=== PATIENT | female | born 1985 ===

== ENCOUNTER 2018-02-24 10:02 | Emergency (ER) | payer OTHER ==
[2018-02-24 10:02] VITALS: BMI 32.4
[2018-02-24 10:09] VITALS: RESP 18
[2018-02-24 10:47] LABS: HCG,QUALITATIVE URINE POSITIVE (NEGATIVE)
[2018-02-24 10:49] LABS: SQUAMOUS EPITHIAL 1 /hpf (0-5); URINE BILIRUBIN NEGATIVE (NEGATIVE); URINE BLOOD 2+ (NEGATIVE); URINE CLARITY Clear (Clear); URINE COLOR Yellow (YELLOW); URINE GLUCOSE (UA) 3+ mg/dL (Normal); URINE LEUKOCYTE ESTERASE NEG Leu/uL (Negative); URINE PROTEIN NEGATIVE (NEGATIVE); URINE UROBILINOGEN NORMAL mg/dL (0.2-1.0)
[2018-02-24 10:58] LABS: BASO % 0.6 % (0.0-2.0); EOS # 0.2 K/uL (0.0-0.7); EOS % 1.8 % (0.0-4.0); HEMOGLOBIN 13.7 g/dL (11.0-16.0); LYMPH # 2.2 K/uL (1.0-4.3); LYMPH % 26.5 % (20.0-40.0); MEAN CELL VOLUME 88.1 fL (81.0-99.0); MEAN CORPUSCULAR HEMOGLOBIN 29.5 pg (27.0-31.0); MEAN CORPUSCULAR HGB CONC 33.5 g/dL (33.0-37.0); MEAN PLATELET VOLUME 9.2 fL (7.2-11.7); MONO # 0.5 K/uL (0.0-0.8); MONO % 5.6 % (0.0-10.0); NEUT # 5.5 K/uL (1.8-7.0); NEUT % 65.5 % (50.0-75.0); RBC 4.66 Mil/uL (3.80-5.20); RED CELL DISTRIBUTION WIDTH 13.1 % (11.5-14.5); WHITE BLOOD COUNT 8.4 K/uL (4.8-10.8)
[2018-02-24 11:18] LABS: ALB/GLOB RATIO 1.5 (1.0-2.1); ALBUMIN 4.4 g/dL (3.5-5.0); ALT/SGPT 21 U/L (9-52); AST/SGOT 27 U/L (14-36); BLOOD UREA NITROGEN 6 mg/dL (7-17); CALCIUM 9.5 mg/dl (8.6-10.4); GFR NON-AFRICAN AMERICAN > 60
--- NOTE | 2018-02-24 13:18 | C.PDOC ---
History Of Present Illness 32 year old female, 12 weeks , , presents to ED for evaluation of vaginal spotting since last night. Notes she had dysuria few days ago which resolved after drinking plenty of water. Otherwise, denies abdominal pain, vomi ting, diarrhea, back pain, or fever. Time Seen by Provider: 02/24/18 10:14 Chief Complaint (Nursing): Female Genitourinary History Per: Patient History/Exam Limitations: no limitations Onset/Duration Of Symptoms: Days Current Symptoms Are (Timing): Still Present Quality Of Discomfort: "Pain" Associated Symptoms: denies: Fever, Chills, Vomiting, Diarrhea, Back Pain, Chest Pain, Constipation, Urinary Symptoms Alleviating Factors: None Recent travel outside of the [place]: No Additional History Per: Patient : 2 Para: 0 Past Medical History Reviewed: Historical Data, Nursing Documentation, Vital Signs Vital Signs: Last Vital Signs Temp 98.7 F 02/24/18 10:05 Pulse 80 02/24/18 10:05 Resp 18 02/24/18 10:05 BP 155/79 H 02/24/18 10:05 Pulse Ox 100 02/24/18 10:05 - Medical History PMH: No Chronic Diseases Surgical History: Appendectomy Family History: States: Unknown Family Hx - Social History Hx Alcohol Use: No Hx Substance Use: No Review Of Systems Constitutional: Negative for: Fever, Chills Gastrointestinal: Negative for: Nausea, Vomiting, Abdominal Pain, Diarrhea, Constipation Genitourinary: Positive for: Vaginal Bleeding (spotting). Negative for: Dysuria, Frequency, Hematuria, Vaginal Discharge, Pelvic Pain Musculoskeletal: Negative for: Back Pain Physical Exam - Physical Exam Appears: Non-toxic, No Acute Distress Skin: Normal Color, Warm, Dry Head: Atraumatic, Normacephalic Eye(s): bilateral: Normal Inspection Oral Mucosa: Moist Neck: Normal ROM, Supple Cardiovascular: Rhythm Regular, No Murmur Respiratory: Normal Breath Sounds, No Rales, No Rhonchi, No Wheezing Gastrointestinal/Abdominal: Soft, No Tenderness Back: No CVA Tenderness Extremity: Normal ROM Neurological/Psych: Oriented x3, Normal Speech ED Course And Treatment - Laboratory Results Result Diagrams: 02/24/18 10:48 02/24/18 10:48 Lab Interpretation: Abnormal O2 Sat by Pulse Oximetry: 100 (RA) Pulse Ox Interpretation: Normal - CT Scan/US Preg Ultrasound Other Rad Studies (CT/US): Read By Radiologist, Radiology Report Reviewed CT/US Interpretation: Accession No. : [id number]. Patient Name / ID : SERAFIN GONZALEZ / [id number]. Exam Date : 02/24/2018 11:44:43 ( Approved ). Study Comment : Sex / Age : F / 32Y. Creator : Becca Partida MD. Dictator : Becca Partida MD. Scientific Manager : Electroplater Automatic : Becca Partida MD. Approver2 : Report Date : 02/24/2018 13:14:18. My Comment : . Date of service: 02/24/2018. PROCEDURE: OB Pelvic Ultrasound. HISTORY: 12wk preg with pain bleeding. COMPARISON: None available. FINDINGS: UTERUS: Singleintrauterine gestation. Yolk sac is visualized. CRL measures 1.61 cm equivalent to 8 weeks and 0 day of gestational age. Gestational sac diameter measures 2.36 cm equivalent to 7 weeks and 0 day of gestational age. age (Ultrasound estimated): 7 weeks and 4 days. cardiac activity is not documented. Mikayla-gestational hemorrhage: None. Uterus measures 14.3 x 5.2 x 6.9 cm. No mass. CERVIX: Long and closed. There fluid in the endocervical canal. RIGHT OVARY: Measures 2.8 x 2.7 x 2.9 cm. No mass. Normal flow. LEFT OVARY: Measures 2.7 x 2.8 x 3.3 cm. No mass. Normal flow. FREE FLUID: None. OTHER FINDINGS: None. IMPRESSION: Single intrauterine gestation with mean gestational age of 7 weeks and 4 days. cardiac activity is not documented on the current examination concerning for demise. Important findings were discussed with CHRISTIAN Grace on 02/24/2018 at 1:55 p.m. The final report has been tagged to the PA review folder. - Physician Consult Information Time Consulting Physician Contacted: 13:57 Physician Contacted: Becca Palacio Outcome Of Conversation: Spoke to Dr. Mckay regarding the patient, who stated concern for demise due to no cardiac activity. Medical Decision Making Medical Decision Making: Impression: 32 year old female, 12 weeks , presents with vaginal spotting. Plan: * Blood work * Urinalysis * Preg 1st trimester ultrasound Labs showed hyperglycemia. BHCG 3586.9. US showed IUP with no cardiac activity and concern for demise. [address] Saran QUIJANO windows application administrator to discuss case. She states there is no emergent indication for D&C at this time and patient can be discharged and to follow up with OB clinic. I explained results to patient and provided copy of lab and US reports. I discussed the results and there is elevated glucose and related gestational diabetes which will need further evaluation. The plan is for discharge and course to follow. She understands and will follow up outpatient. Recommend rest and analgesics as needed Disposition - Disposition [facility] Disposition: HOME/ ROUTINE Disposition Time: 14:21 Condition: STABLE Additional Instructions: You were evaluated today for vaginal bleeding during . Your labs today showed BHCG 3586.9 and ultrasound showed Single intrauterine gestation with mean gestational age of 7 weeks and 4 days. cardiac activity is not seen and there is concern for demise. It is important that you follow up with lithographing machine operator in 2-3 days for further evaluation. Instructions: Threatened Miscarriage (DC) Forms: [employer] [facility] (French) - POA Present On Arrival: Poor Glycemic Control - Clinical Impression Clinical Impression: Threatened miscarriage, Abnormal ultrasound, Hyperglycemia during - PA / RETOUCHER PHOTOENGRAVING / Resident Statement MD/DO has reviewed & agrees with the documentation as recorded. - Scribe Statement The provider has reviewed the documentation as recorded by the Minnieibangelica Ye All medical record entries made by the Minnieibangelica were at my direction and perso slim dictated by me. I have reviewed the chart and agree that the record accurately reflects my personal performance of the history, physical exam, medical decision making, and the department course for this patient. I have also personally directed, reviewed, and agree with the discharge instructions and disposition.
--- NOTE | 2018-02-24 13:57 | US ---
Date of service: 02/24/2018 PROCEDURE: OB Pelvic Ultrasound HISTORY: 12wk preg with pain bleeding COMPARISON: None available. FINDINGS: UTERUS: Singleintrauterine gestation. Yolk sac is visualized. CRL measures 1.61 cm equivalent to 8 weeks and 0 day of gestational age. Gestational sac diameter measures 2.36 cm equivalent to 7 weeks and 0 day of gestational age. age (Ultrasound estimated): 7 weeks and 4 days cardiac activity is not documented. Mikayla-gestational hemorrhage: None. Uterus measures 14.3 x 5.2 x 6.9 cm. No mass CERVIX: Long and closed. There fluid in the endocervical canal. RIGHT OVARY: Measures 2.8 x 2.7 x 2.9 cm. No mass. Normal flow. LEFT OVARY: Measures 2.7 x 2.8 x 3.3 cm. No mass. Normal flow. FREE FLUID: None. OTHER FINDINGS: None. IMPRESSION: Single intrauterine gestation with mean gestational age of 7 weeks and 4 days. cardiac activity is not documented on the current examination concerning for demise. Important findings were discussed with CHRISTIAN Grace on 02/24/2018 at 1:55 p.m. The final report has been tagged to the PA review folder.
[2018-02-24 14:29] VITALS: BP 138/84; PULSE 74; TEMP 98.4
[2018-02-24 15:20] VITALS: O2SAT 100
== END 2018-02-24 14:40 | disposition home or self-care (01) ==
LOC: C.ER 10:02
DX: O20.0 Threatened abortion (principal); O26.891 Other specified pregnancy related conditions, first trimester; R73.9 Hyperglycemia, unspecified; Z3A.12 12 weeks gestation of pregnancy; Z36.87 Encounter for antenatal screening for uncertain dates

== ENCOUNTER 2018-02-28 05:30 | Day surgery (SDC) | payer OTHER ==
[2018-02-28 05:30] VITALS: BMI 32.4
[2018-02-28] MEDS ORDERED: Sodium Chloride 0.9% 1,000 ML IV STA (05:44)
--- NOTE | 2018-02-28 05:44 | C.PDOC ---
History Of Present Illness 32 year old female presents to the ER with a complaint of vaginal bleeding since yesterday. Patient is 12 weeks . Denies abdominal pain, nausea, or vomiting. <Moon Ortiz - Last Filed: 02/28/18 06:15> History Per: Patient History/Exam Limitations: no limitations Onset/Duration Of Symptoms: Days (Yesterday) Current Symptoms Are (Timing): Still Present Associated Symptoms: denies: Nausea, Vomiting, Other (Abdominal pain) Alleviating Factors: None Recent travel outside of the [place]: No Abnormal Vaginal Bleeding: Yes <Moon Ortiz - Last Filed: 02/28/18 06:15> <Antione Han - Last Filed: 02/28/18 06:26> Chief Complaint (Nursing): Female Genitourinary Past Medical History Reviewed: Historical Data, Nursing Documentation, Vital Signs Vital Signs: Last Vital Signs Temp 97.9 F 02/28/18 05:37 Pulse 78 02/28/18 05:37 Resp 18 02/28/18 05:37 BP 126/83 02/28/18 05:37 Pulse Ox 99 02/28/18 05:37 Surgical History: Appendectomy Family History: States: Unknown Family Hx - Social History Hx Alcohol Use: No Hx Substance Use: No - Immunization History Hx Tetanus Toxoid Vaccination: No Hx Influenza Vaccination: No Hx Pneumococcal Vaccination: No <Moon Ortiz - Last Filed: 02/28/18 06:15> Vital Signs: Last Vital Signs Temp 97.9 F 02/28/18 05:37 Pulse 78 02/28/18 05:37 Resp 18 02/28/18 05:37 BP 126/83 02/28/18 05:37 Pulse Ox 99 02/28/18 06:16 <Antione Han - Last Filed: 02/28/18 06:26> Review Of Systems Constitutional: Negative for: Fever, Chills Cardiovascular: Negative for: Chest Pain, Palpitations Respiratory: Negative for: Cough, Shortness of Breath Gastrointestinal: Negative for: Nausea, Vomiting, Abdominal Pain Genitourinary: Positive for: Vaginal Bleeding Neurological: Negative for: Dizziness <Moon Ortiz - Last Filed: 02/28/18 06:15> Physical Exam - Physical Exam Appears: Non-toxic Skin: Normal Color, Warm, Dry Head: Atraumatic, Normacephalic Eye(s): bilateral: Normal Inspection Oral Mucosa: Moist Chest: Symmetrical, No Tenderness Cardiovascular: Rhythm Regular Respiratory: Normal Breath Sounds, No Rales, No Rhonchi, No Wheezing Gastrointestinal/Abdominal: Soft, No Tenderness Back: No CVA Tenderness Neurological/Psych: Oriented x3, Normal Speech <Moon Ortiz - Last Filed: 02/28/18 06:15> ED Course And Treatment - Laboratory Results Result Diagrams: 02/28/18 05:59 O2 Sat by Pulse Oximetry: 99 (Room air) Pulse Ox Interpretation: Normal Progress Note: Blood work, urinalysis, and pelvis US ordered. IV fluids administered. <Moon Ortiz - Last Filed: 02/28/18 06:15> - Laboratory Results Result Diagrams: 02/28/18 05:59 02/28/18 05:59 <Antione Han - Last Filed: 02/28/18 06:26> Disposition - Disposition Disposition Time: 06:15 <Moon Ortiz - Last Filed: 02/28/18 06:15> <Antione Han - Last Filed: 02/28/18 06:26> - Disposition Referrals: Bill HUNT,Elyssa Alexandre MD [Primary Care Provider] - Condition: FAIR Forms: [facility] (Bengali) - Clinical Impression Clinical Impression: Vaginal bleeding - PA / HUNTER / Resident Statement MD/DO has reviewed & agrees with the documentation as recorded. - Scribe Statement The provider has reviewed the documentation as recorded by the Scribe Mark Lane All medical record entries made by the Scribe were at my direction and personally dictated by me. I have reviewed the chart and agree that the record accurately reflects my personal performance of the history, physical exam, medical decision making, and the department course for this patient. I have also personally directed, reviewed, and agree with the discharge instructions and disposition. <Moon Ortiz - Last Filed: 02/28/18 06:15> Physician Patient Turnover Patient Signed Over To: Antione Han Handoff Comments: Pending labs, US, and dispo <Moon Ortiz - Last Filed: 02/28/18 06:15> Patient Signed Over To: Jose Harvey <Antione Han - Last Filed: 02/28/18 06:26>
[2018-02-28 06:02] LABS: BASO # 0.1 K/uL (0.0-0.2); EOS # 0.3 K/uL (0.0-0.7); HEMOGLOBIN 13.4 g/dL (11.0-16.0); LYMPH % 34.3 % (20.0-40.0); MEAN CELL VOLUME 88.4 fL (81.0-99.0); MEAN CORPUSCULAR HEMOGLOBIN 29.5 pg (27.0-31.0); MEAN CORPUSCULAR HGB CONC 33.4 g/dL (33.0-37.0); MEAN PLATELET VOLUME 9.1 fL (7.2-11.7); MONO # 0.5 K/uL (0.0-0.8); MONO % 6.3 % (0.0-10.0); NEUT # 4.8 K/uL (1.8-7.0); NEUT % 55.4 % (50.0-75.0); RBC 4.54 Mil/uL (3.80-5.20); WHITE BLOOD COUNT 8.6 K/uL (4.8-10.8)
[2018-02-28 06:10] LABS: PROTHROMBIN TIME 10.4 SECONDS (9.7-12.2)
[2018-02-28 06:17] LABS: ALB/GLOB RATIO 1.6 (1.0-2.1); ALBUMIN 4.5 g/dL (3.5-5.0); ALT/SGPT 23 U/L (9-52); AST/SGOT 22 U/L (14-36); BLOOD UREA NITROGEN 6 mg/dL (7-17); CALCIUM 9.1 mg/dl (8.6-10.4); GFR NON-AFRICAN AMERICAN > 60
[2018-02-28 06:20] LABS: SQUAMOUS EPITHIAL 31 /hpf (0-5); URINE BILIRUBIN NEGATIVE (NEGATIVE); URINE BLOOD 3+ (NEGATIVE); URINE CLARITY Hazy (Clear); URINE COLOR Yellow (YELLOW); URINE GLUCOSE (UA) 3+ mg/dL (Normal); URINE LEUKOCYTE ESTERASE 1+ Leu/uL (Negative); URINE PROTEIN 1+ mg/dL (NEGATIVE); URINE UROBILINOGEN NORMAL mg/dL (0.2-1.0)
--- NOTE | 2018-02-28 07:49 | CP.PCM.HP ---
History of Present Illness - History of Present Illness History of Present Illness: Pt is a 32yo who recently had a miscarriage 4 days ago and is still having vaginal bleeding. Pt states the bleeding is worse than one of her typical periods. She has been bleeding for the past 3 days. She states she has been us ing 10-11 pad over a 5 hours. Pt denies chest pain, SOB, headaches, or visual changes. A 12 point ROS was obtained and added to the HPI where appropriate. PMH: HTN PSH: D/c with past miscarriages FH: Mother 52 HTN, DM. Father 58 DM. SH: Denies tobacco, alcohol, drugs, lives in [place], unemployed Allergies: NKDA Home meds: PNV, progesterone, folic acid OBGYN: Menarche 15, 30-32 day cycles, bleeding for 5 days, denies history of STI, Pap- never abnormal. Present on Admission - Present on Admission Any Indicators Present on Admission: No Review of Systems - Review of Systems Review of Systems: a 12 point ROS was obtained and added to the HPI where appropriate Past Patient History - Infectious Disease Hx of Infectious Diseases: None - Past Social History Smoking Status: Never Smoked - PSYCHIATRIC Hx Substance Use: No - SURGICAL HISTORY Hx Appendectomy: Yes - ANESTHESIA Hx Anesthesia: Yes Hx Anesthesia Reactions: No Hx Malignant Hyperthermia: No Meds Allergies/Adverse Reactions: Allergies Allergy/AdvReac Type Severity Reaction Status Date / Time No Known Allergies Allergy Verified 02/28/18 05:36 Physical Exam - Constitutional Appears: No Acute Distress - Head Exam Head Exam: ATRAUMATIC, NORMOCEPHALIC - Eye Exam Eye Exam: EOMI - ENT Exam ENT Exam: Mucous Membranes Moist - Respiratory Exam Respiratory Exam: Clear to Auscultation Bilateral, NORMAL BREATHING PATTERN. absent: Accessory Muscle Use, Wheezes - Cardiovascular Exam Cardiovascular Exam: RRR, +S1, +S2. absent: Diastolic murmur, Systolic Murmur - GI/Abdominal Exam GI & Abdominal Exam: Normal Bowel Sounds, Soft - Extremities Exam Extremities exam: Positive for: full ROM. Negative for: pedal edema - Neurological Exam Neurological exam: CN II-XII Intact, Oriented x3 - Psychiatric Exam Psychiatric exam: Normal Affect, Normal Mood - Skin Skin Exam: Dry, Intact Results - Vital Signs Recent Vital Signs: Last Vital Signs Temp 97.9 F 02/28/18 06:57 Pulse 63 02/28/18 06:57 Resp 16 02/28/18 06:57 BP 123/79 02/28/18 06:57 Pulse Ox 98 02/28/18 06:57 - Labs Result Diagrams: 02/28/18 05:59 02/28/18 05:59 Labs: Laboratory Results - last 24 hr 02/28/18 02/28/18 02/28/18 05:59 05:59 05:59 WBC 8.6 RBC 4.54 Hgb 13.4 Hct 40.1 MCV 88.4 MCH 29.5 MCHC 33.4 RDW 13.0 Plt Count 384 MPV 9.1 Neut % (Auto) 55.4 Lymph % (Auto) 34.3 Avery % (Auto) 6.3 Eos % (Auto) 3.0 Baso % (Auto) 1.0 Neut # (Auto) 4.8 Lymph # (Auto) 3.0 Avery # (Auto) 0.5 Eos # (Auto) 0.3 Baso # (Auto) 0.1 PT INR APTT Sodium 137 Potassium 4.0 Chloride 100 Carbon Dioxide 27 Anion Gap 14 BUN 6 L Creatinine 0.5 L Est GFR ( Amer) > 60 Est GFR (Non-Af Amer) > 60 Random Glucose 193 H Calcium 9.1 Total Bilirubin 0.4 AST 22 ALT 23 Alkaline Phosphatase 73 Total Protein 7.2 Albumin 4.5 Globulin 2.7 Albumin/Globulin Ratio 1.6 Beta HCG, Quant 370.50 Urine Color Urine Clarity Urine pH Ur Specific [place] Urine Protein Urine Glucose (UA) Urine Ketones Urine Blood Urine Nitrate Urine Bilirubin Urine Urobilinogen Ur Leukocyte Esterase Urine WBC (Auto) Urine RBC (Auto) Ur Squamous Epith Cells Blood Type O POSITIVE Antibody Screen Negative 02/28/18 02/28/18 05:59 05:59 WBC RBC Hgb Hct MCV MCH MCHC RDW Plt Count MPV Neut % (Auto) Lymph % (Auto) Avery % (Auto) Eos % (Auto) Baso % (Auto) Neut # (Auto) Lymph # (Auto) Avery # (Auto) Eos # (Auto) Baso # (Auto) PT 10.4 INR 1.0 APTT 32 Sodium Potassium Chloride Carbon Dioxide Anion Gap BUN Creatinine Est GFR ( Amer) Est GFR (Non-Af Amer) Random Glucose Calcium Total Bilirubin AST ALT Alkaline Phosphatase Total Protein Albumin Globulin Albumin/Globulin Ratio Beta HCG, Quant Urine Color Yellow Urine Clarity Hazy Urine pH 5.0 Ur Specific [place] 1.022 Urine Protein 1+ H Urine Glucose (UA) 3+ H Urine Ketones Negative Urine Blood 3+ H Urine Nitrate Negative Urine Bilirubin Negative Urine Urobilinogen Normal Ur Leukocyte Esterase 1+ H Urine WBC (Auto) 23 H Urine RBC (Auto) 732 H Ur Squamous Epith Cells 31 H Blood Type Antibody Screen Assessment & Plan - Assessment and Plan (Free Text) Assessment: Pt is a 32yo who is presenting to the ED after a miscarriage 4 days ago, complaining of vaginal bleeding for the past 3-4 days Plan: Retained products of conception - suction D&C in OR today - transvaginal ultrasound - IVF NS - macrobid Pt seen, examined, assessment and plan discussed with Dr Alexia Joe PGY1, Internal Medicine Resident - Date & Time Date: 02/28/18 Time: 07:58
[2018-02-28 08:42] VITALS: O2SAT 100
--- NOTE | 2018-02-28 09:41 | US ---
Date of service: 02/28/2018 HISTORY: , vaginal bleeding COMPARISON: Comparison made with prior pelvic ultrasound 02/24/2018.. TECHNIQUE: Transvaginal pelvic ultrasound. FINDINGS: UTERUS: Measures approximately 10.4 x 4.7 x 5.5 cm. Anteverted. Normal in size and appearance. No fibroid or other mass lesion seen. ENDOMETRIUM: Measures 1.48 mm in diameter. . Previously noted suspected pole and yolk sac within an apparent gestational sac no longer visible. CERVIX: No cervical abnormality identified. Cervix measures approximately 3.0 cm RIGHT OVARY: Measures approximately 3.6 x 2.2 x 2.4 cm. No solid mass. Normal flow. LEFT OVARY: Measures 3.6 x 2.5 x 2.9 cm. No solid mass. Normal flow. FREE FLUID: No significant free fluid noted. OTHER FINDINGS: None. IMPRESSION: No evidence of viable intrauterine gestation.. Findings likely represent evolving spontaneous ..
[2018-02-28] MEDS ORDERED: Oxytocin 20 units in LR 0 ML IV ONE (10:00)
[2018-02-28] MEDS ORDERED: ceFAZolin 1 gm FROZEN Premix 2 GM/100 ML ML IVPB ONE (10:01)
[2018-02-28] MEDS ORDERED: Propofol 10 mg/ml Inj (20 ML) ONE (10:02)
[2018-02-28] MEDS ORDERED: Midazolam 2 MG/2 ML VIAL ONE (10:02)
[2018-02-28] MEDS ORDERED: HYDROmorphone 0.5 mg/0.5 ml ISec IVP PRN (10:32)
[2018-02-28 12:03] VITALS: BP 133/67
[2018-02-28 12:59] VITALS: PULSE 83; RESP 18; TEMP 97.7
--- NOTE | 2018-03-14 02:40 | OP ---
PROCEDURE DATE: 02/28/2018 PREOPERATIVE DIAGNOSIS: A 32-year-old 3, para 0 with retained products of conception. POSTOPERATIVE DIAGNOSIS: A 32-year-old 3, para 0 with retained products of conception. SURGEON: Nathanael Hale MD SCOUT LEASER SURGEON: None. ANESTHESIA: General anesthesia. ANESTHESIOLOGIST: Dr. Tony PROCEDURE PERFORMED: Suction dilation and curettage. DESCRIPTION OF PROCEDURE: After informed consent was obtained, the patient was brought to the operating room, placed on the table where general anesthesia was given. Once the anesthesia was given, the patient was prepped and draped in a normal sterile fashion. Examination of the uterus revealed it to be 7-week size. No pelvic or adnexal masses. Anterior lip of the cervix was grasped with a tenaculum. Gentle dilation of the cervix was done. Then, suction was done. A 6-[place] African and 7-[place] African were used. Sharp curettage of the endometrium was done. The products were sent to the Pathology for the chromosome. After that, sharp curettage was done again. After that, Pitocin. The tenaculum was taken out. The patient tolerated the procedure well. Lap, sponge, and instrument counts were correct x2 at the end of the case. Nathanael Hale MD
== END 2018-02-28 12:35 | disposition home or self-care (01) ==
LOC: SUPCPDRO 05:30 → C.ER 05:30 → C.SDS 07:37
PROVIDERS: ATTEND Obstetrics & Gynecology
DX: O03.9 Complete or unspecified spontaneous abortion without complication (principal); Z3A.12 12 weeks gestation of pregnancy
CPT/HCPCS: 59820; 76830; 80053; 81001; 84702; 85025; 85610; 85730; 86850; 86900; 88233; 88262; 88305; 96360; 99285; J0690; J2250; J2704; J3010; J7030

== ENCOUNTER 2018-06-27 14:24 | Outpatient (CLI) | payer OTHER | END 2018-06-27 14:25 | disposition home or self-care (01) | LOC: C.LAB 14:24 | DX: Z34.91 Encounter for supervision of normal pregnancy, unspecified, first trimester (principal) ==

== ENCOUNTER 2018-08-02 13:28 | Outpatient (CLI) | payer OTHER | END 2018-08-02 13:29 | disposition home or self-care (01) | LOC: C.LAB 13:28 | DX: Z34.82 Encounter for supervision of other normal pregnancy, second trimester (principal) ==